=== PATIENT | female | born 1965 | race Caucasian/White ===

== ENCOUNTER 2017-05-13 14:36 | Emergency (ER) | payer OTHER ==
[~2017-05-13] VITALS: Ht 167.6 cm; Wt 86.2 kg
[2017-05-13 14:47] VITALS: BP_SYST 144
[2017-05-13] MEDS ORDERED: HYDR25TA4 PO (14:57)
[2017-05-13] MEDS ORDERED: VENL37.510 PO (14:57)
[2017-05-13] MEDS ORDERED: VALS160T2 PO (14:57)
[2017-05-13 15:12] LABS: BILIRUBIN,URINE NEGATIVE (NEGATIVE); BLOOD, URINE NEGATIVE (NEGATIVE); CLARITY/URINE CLEAR (CLEAR); COLOR,URINE YELLOW (YELLOW); GLUCOSE,URINE 3+ (NEGATIVE); KETONES,URINE NEGATIVE (NEGATIVE); LEUKOCYTE ESTERASE ,URINE NEGATIVE (NEGATIVE); NITRITE, URINE NEGATIVE (NEGATIVE); PROTEIN URINE NEGATIVE (NEGATIVE); UROBILINOGEN,URINE 0.2 (0.2-1.0)
[2017-05-13] MEDS ORDERED: ONDANSETRON HCL 4 MG/2 ML VIAL IVP ONE (15:45)
[2017-05-13 15:46] LABS: BASOPHILS % (AUTO) 0.6 % (0.0-2.0); EOSINOPHILS # (AUTO) 0.1 K/uL (0.0-0.4); EOSINOPHILS % (AUTO) 0.9 % (0.0-4.0); HEMATOCRIT 43.3 % (36-48); HEMOGLOBIN 14.4 g/dL (12.0-16.0); LYMPHOCYTES # (AUTO) 1.9 K/uL (1.0-5.5); LYMPHOCYTES % (AUTO) 28.6 % (20.5-51.5); MEAN CORPUSCULAR HEMOGLOBIN 32 pg (27-31); MEAN CORPUSCULAR HGB CONC 33 % (32-36); MEAN CORPUSCULAR VOLUME 95 fL (79.0-98.0); MONOCYTES # (AUTO) 0.3 K/uL (0.0-1.0); MONOCYTES % (AUTO) 4.1 % (1.7-9.3); NEUTROPHILS # (AUTO) 4.3 K/uL (1.8-7.7); NEUTROPHILS % (AUTO) 65.8 % (40.0-70.0); PLATELET COUNT (AUTO) 207 K/uL (130-430); RED BLOOD CELL COUNT(AUTO) 4.54 MIL/uL (4.2-6.2); RED CELL DISTRIBUTION WIDTH 12.2 % (9.0-15.0); WHITE BLOOD COUNT (AUTO) 6.6 K/uL (4.8-10.8)
[2017-05-13 16:13] LABS: ANION GAP 11 (5-15); CALCIUM 8.8 mg/dL (8.4-11.0); CHLORIDE 103 mmol/L (98-107); GLUCOSE 392 mg/dL (70-99); POTASSIUM 4.2 mmol/L (3.5-5.1); SODIUM SERUM 136 mmol/L (136-145); UREA NITROGEN, BLOOD 13 mg/dL (8-21)
[2017-05-13 16:14] LABS: ALANINE AMINOTRANSFERASE 157 U/L (12-78); ALBUMIN 3.8 g/dL (3.4-4.8); ASPARTATE AMINOTRANSFERASE 73 U/L (10-37); CREATININE 0.62 mg/dL (0.55-1.30); GFR AFRICAN AMERICAN 130 mL/min (>90); TOTAL BILIRUBIN 0.8 mg/dL (0.0-1.0)
[2017-05-13 16:35] LABS: ACETONE, SERUM TRACE (NEGATIVE)
[2017-05-13] MEDS ORDERED: SUMAtriptan SUCCINATE 6 MG/0.5 ML VIAL SUBCUT ONE ×2 (17:15→17:30)
[2017-05-13] MEDS ORDERED: MORPHINE 4 MG/ML INJ. SYRINGE IVP ONE (17:30)
[2017-05-13 17:59] VITALS: BP_SYST 134
== END 2017-05-13 17:57 | disposition home or self-care (01) ==
LOC: SED 14:36
DX: R73.9 Hyperglycemia, unspecified (principal); R51 Headache; I10 Essential (primary) hypertension; Z88.6 Allergy status to analgesic agent; Z88.5 Allergy status to narcotic agent; Z86.718 Personal history of other venous thrombosis and embolism
CPT/HCPCS: 36415; 70450; 71010; 80053; 81003; 82009; 85025; 93005; 96372; 96374; 99285; J2405; J3030

== ENCOUNTER 2020-03-24 19:46 | Emergency (ER) | payer BC, OTHER ==
[~2020-03-24] VITALS: Ht 167.6 cm; Wt 95.3 kg
[~2020-03-24 19:46] MED LIST: HYDR25TA4 PO; VALS160T2 PO; VENL37.510 PO
[2020-03-24 20:05] VITALS: BP_SYST 158
[2020-03-24] MEDS ORDERED: hydrALAZINE HCL 20 MG/ML VIAL IM ONE (21:45)
[2020-03-24] MEDS ORDERED: KETOROLAC TROMETHAMINE 60 MG/2 ML VIAL IM ONE (22:30)
[2020-03-24 22:59] VITALS: BP_SYST 129
== END 2020-03-24 22:59 | disposition home or self-care (01) ==
LOC: SED 19:46
DX: I10 Essential (primary) hypertension (principal); R51 Headache; Z86.718 Personal history of other venous thrombosis and embolism; Z79.899 Other long term (current) drug therapy; Z88.6 Allergy status to analgesic agent
CPT/HCPCS: 70450; 96372; 99284; J0360; J1885

== ENCOUNTER 2021-07-07 14:44 | Emergency (ER) | payer BC, SELFPAY ==
[~2021-07-07] VITALS: Ht 167.6 cm; Wt 117.9 kg
[~2021-07-07 14:44] MED LIST changes: +EFF37 PO; -VENL37.510 PO
[2021-07-07 14:45] VITALS: BP_SYST 121
--- NOTE | 2021-07-07 14:46 | NUR ---
Patient triaged and placed in waiting room. VSS and patient appears in no acute distress at this time. Accompanied by SPOUSE, awaiting available bed, and MD notified of need for MSE.
--- NOTE | 2021-07-07 15:10 | NUR ---
PT STATES THAT SHE HAS BEEN + FOR COVID AND HAD MONOCLONAL ANTIBODIES ON 07/01, STILL WITH COUGH AND SOB. STATES SHE IS JUST NOT GETTING BETTER AND EVERYONE ELSE IN THE FAMILY THAT GOT THE ANTIBODIES IS BETTER BUT HER.
--- NOTE | 2021-07-07 15:20 | NUR ---
DR LAWLER OUT TO TRIAGE TENT FOR EVALUATION
--- NOTE | 2021-07-07 16:05 | NUR ---
NO CHANGES, PT PLACED ON GURNEY AND GIVEN WARM BLANKETS AND A HEATER. SPOUSE AT BEDSIDE.
[2021-07-07 16:46] LABS: BASOPHILS % (AUTO) 0.5 % (0.0-2.0); EOSINOPHILS % (AUTO) 0.2 % (0.0-4.0); HEMATOCRIT 42.4 % (36-48); HEMOGLOBIN 14.9 g/dL (12.0-16.0); LYMPHOCYTES # (AUTO) 1.5 K/uL (1.0-5.5); MEAN CORPUSCULAR HEMOGLOBIN 32 pg (27-31); MEAN CORPUSCULAR HGB CONC 35 % (32-36); MEAN CORPUSCULAR VOLUME 91 fL (79.0-98.0); MONOCYTES # (AUTO) 0.3 K/uL (0.0-1.0); MONOCYTES % (AUTO) 5.3 % (1.7-9.3); NEUTROPHILS # (AUTO) 4.2 K/uL (1.8-7.7); PLATELET COUNT (AUTO) 214 K/uL (130-430); RED BLOOD CELL COUNT(AUTO) 4.68 MIL/uL (4.2-6.2); RED CELL DISTRIBUTION WIDTH 13.3 % (9.0-15.0)
[2021-07-07 16:56] LABS: ANION GAP 7 (5-15); CALCIUM 9.3 mg/dL (8.4-11.0); CHLORIDE 99 mmol/L (98-107); CREATININE 0.67 mg/dL (0.55-1.30); GLUCOSE 189 mg/dL (70-99); POTASSIUM 3.4 mmol/L (3.5-5.1); SODIUM SERUM 135 mmol/L (136-145); UREA NITROGEN, BLOOD 11 mg/dL (8-21)
[2021-07-07 16:58] LABS: ACETONE, SERUM NEGATIVE (NEGATIVE)
[2021-07-07 16:59] LABS: GFR AFRICAN AMERICAN 117 mL/min (>90)
[2021-07-07 17:05] LABS: ALANINE AMINOTRANSFERASE 37 U/L (12-78); ALBUMIN 3.6 g/dL (3.4-4.8); ASPARTATE AMINOTRANSFERASE 20 U/L (10-37)
--- NOTE | 2021-07-07 17:20 | NUR ---
NO CHANGES, RESTING OUT IN TRIAGE TENT.
[2021-07-07] MEDS ORDERED: IBUP-1969 PO (17:22)
[2021-07-07] MEDS ORDERED: ALBU8.5H8 INH (17:22)
[2021-07-07] MEDS ORDERED: PRED20TA PO (17:22)
[2021-07-07] MEDS ORDERED: PHEDM120 PO (17:55)
[2021-07-07 18:00] VITALS: BP_SYST 127
--- NOTE | 2021-07-07 18:00 | NUR ---
Patient given written and verbal discharge instructions and verbalizes understanding. ER Dr. Fernandes discussed with patient the results and treatment provided. Patient in stable condition. ID arm band removed. Rx of albuterol, ibuprofen, prednisone and promethazine given. Patient educated on pain management and to follow up with PMD. Pain Scale 0. Opportunity for questions provided and answered. Medication side effect fact sheet provided.
== END 2021-07-07 18:00 | disposition home or self-care (01) ==
LOC: SED 14:44
DX: U07.1 COVID-19 (principal); J40 Bronchitis, not specified as acute or chronic; E11.9 Type 2 diabetes mellitus without complications; I10 Essential (primary) hypertension; Z86.718 Personal history of other venous thrombosis and embolism; Z88.6 Allergy status to analgesic agent; Z88.1 Allergy status to other antibiotic agents
CPT/HCPCS: 36415; 71045; 80053; 81002; 82009; 82550; 83605; 84484; 85025; 99284

== ENCOUNTER 2022-03-02 15:11 | Emergency (ER) | payer BC ==
[~2022-03-02] VITALS: Ht 167.6 cm; Wt 95.3 kg
[~2022-03-02 15:11] MED LIST changes: +ALBU8.5H8 INH; +IBUP-1969 PO; +PHEDM120 PO; +PRED20TA PO
--- NOTE | 2022-03-02 15:20 | NUR ---
Report given to Nina GAINES
--- NOTE | 2022-03-02 15:20 | NUR ---
Patient to ER bed 02 to gown for evaluation. Side rails up.
[2022-03-02 15:21] VITALS: BP_SYST 160
--- NOTE | 2022-03-02 15:25 | NUR ---
RECEIVED PT FROM LIANA VERAS. PT STATES HER BP IS HIGH IN THE 106S SBP. PT HAD BEEN TO HOSPITAL A FEW DAYS PROIR AND RECEIVED AN INCREASE IN HER [place] MEDICATION PT DENIES H/A AND DIZZINES. DENIES PAIN. RESP E/U. NO R/A. NO OTHER DISTRESS NOTED. IV CATH INITIATED TO RFA 20G. SITE WNL. SIDERAILS UP X2.
--- NOTE | 2022-03-02 16:30 | NUR ---
PT IV CATH REMOVED FROM LFA 20 INTACT. SITE COVERED WITH GAUZE AND BANDAID. LH IV ATTEMPT SITE SHOWING S/S OF ECCYMOSIS. ICE PACK PLACED AND PT EDUCATED TO L ARM ELEVATED. PT VERBALIZED UNDERSTANDING.
--- NOTE | 2022-03-02 17:01 | NUR ---
Patient does not wish to proceed with medical care recommended by DR. KENNEDY TO STAY SO THAT HE CAN ASSESS HER. . Patient given information related to possible complications, up to and including , which could occur as a result of leaving hospital at this time. Patient verbalizes understanding of risks involved leaving against medical advice. Patient has signed AMA form. PT WAS ADVISED BY THIS RN TO SEEK MEDICAL ATTENTION IMMEDIATELY. PT AND PT DAUGHTER VERBALIZED UNDERSTANDING.
== END 2022-03-02 16:55 | disposition left against medical advice (07) ==
LOC: SED 15:11
DX: I10 Essential (primary) hypertension (principal); R51.9 Headache, unspecified; R11.0 Nausea; E11.9 Type 2 diabetes mellitus without complications; Z79.899 Other long term (current) drug therapy
CPT/HCPCS: 99281